=== PATIENT | female | born 1980 | race Caucasian/White ===

== ENCOUNTER 2024-01-28 10:08 | Outpatient (CLI) | payer MEDICARE, MEDICAID | END 2024-01-28 10:09 | disposition home or self-care (01) | LOC: CSHMAMMO 10:08 | PROVIDERS: ATTEND Family Medicine | DX: M85.89 Other specified disorders of bone density and structure, multiple sites (principal); M81.0 Age-related osteoporosis without current pathological fracture | CPT/HCPCS: 77080 ==